=== PATIENT | female | born 1970 | race Caucasian/White ===

== ENCOUNTER 2025-02-24 11:14 | Emergency (ER) | payer MEDICARE, SELFPAY ==
[2025-02-24 11:16] VITALS: BP 126/96; PULSE 103; RESP 18; TEMP 37.1; O2SAT 98
[2025-02-24 11:17] VITALS: BMI 29.0
--- NOTE | 2025-02-24 12:36 | CT_ITS ---
EXAM: NONCONTRAST CT SCAN OF THE HEAD CLINICAL HISTORY: Pain COMPARISON: None TECHNIQUE: Serial axial series through the head were obtained without contrast. 2-D coronal and sagittal reformats were then obtained. FINDINGS: Brain: There is no acute large territorial infarct, intracranial hemorrhage, midline shift or mass effect. The sella and pineal gland regions appear unremarkable. There is no evidence of cerebellar tonsillar herniation. Ventricles: There is no acute hydrocephalus. Basilar cisterns are patent. Paranasal sinuses: Well-aerated Mastoid air cells: There is fluid density in a portion of the right mastoid air cells. Calvarium: The bony calvarium is intact. Orbits: The bilateral globes are symmetric, without retrobulbar compressive mass lesion or hemorrhage. CT/Brain/Head without Contrast IMPRESSION: There is fluid density in a portion of the right mastoid air cells, with mastoi ditis. No acute intracranial pathology. Reading Location: [facility]
[2025-02-24 13:01] LABS: Hematocrit 38.8 % (37-47); Hemoglobin 13.6 g/dL (12.0-15.0); Immature Granulocytes Count 0.020 X10^3/uL (0.0-0.0); Mean Corp Hgb Conc 35.1 g/dL (32-36); Mean Corpuscular Volume 92.2 fL (81-99); Mean Platelet Vol. 10.9 fl (6.2-12.0); NRBC Flagged by Analyzer 0 % (0-5); Platelet Count 296 K/mm3 (150-450); RBC Distribution Width CV 12.8 % (11.6-14.6); RBC Distribution Width SD 42.8 fl (35.1-43.9); Red Blood Count 4.21 M/mm3 (4.2-5.4); White Blood Count 7.2 K/mm3 (4.4-11.0)
[2025-02-24] MEDS: 0.9% Normal Saline (1000mL) 1,000 ML 999 ML IV (13:02)
[2025-02-24 13:15] VITALS: BP 106/72; PULSE 16; RESP 82
[2025-02-24 13:35] LABS: AST(SGOT) 14 U/L (<=31); Alanine Aminotransfer ALT/SGPT 11 U/L (<=34); Albumin, Serum 4.4 g/dL (3.5-5.0); Alkaline Phosphatase 79 U/L (35-104); Anion Gap 13 (5-15); BUN 5 mg/dL (4-19); BUN/Creat Ratio 7.8 RATIO (10-20); Calcium,Total 9.8 mg/dL (7.6-11.0); Carbon Dioxide 20.4 mmol/L (21.0-32.0); Chloride 106 mmol/L (98-108); Estimated Creatinine Clearance 109.60 ml/min (50-250); Globulin 2.8 g/dL (2.2-4.2); Glucose 105 mg/dL (70-99); Lipase 17 U/L (13-75); Potassium 4.1 mmol/L (3.3-5.1)
[2025-02-24 13:52] LABS: Mucous, Urine 0 SEEN /hpf (<or=2+); Red Blood Cells-Urine 0 SEEN /hpf (0-5); Squamous Epithelial Cells - UA 0 SEEN /hpf (5-10)
[2025-02-24 13:54] LABS: Color, Urine Yellow (Yellow); Glucose, Dipstick Normal (Normal); Ketone-Dipstick Negative (Negative); Leukocyte Esterase-Dipstick Negative /ul (Negative); Nitrite-Dipstick Negative (Negative); Occult Blood-Urine Negative /ul (Negative); Protein-Dipstick Negative (Negative); Specific Gravity, Urine 1.005 (1.002-1.030); Urine Bilirubin Dipstick Negative (Negative)
--- NOTE | 2025-02-24 14:16 | EX.ED.VIS.HA ---
HPI History of Present Illness Chief Complaint: Headache Informant: patient Narrative Narrative: Patient is a 54-year-old female presenting with worsening headache and bilateral ear pain. Has a history of migraine headaches. She normally takes Maxalt for this and it normally helps. She states that 2 days ago she threw up after dinner. She then developed relatively profuse vomiting and diarrhea that she maybe had food poisoning. She had hot and cold chills but denies any objective fever. The following day she developed a headache. She states it started in the front of her head and the top of her head but then she started get pressure in her ears off-and-on. Since then last night she has had worsening bilateral ear congestion and pain. She feels that there is a lot of pressure in her ears with her right worse than her left. Denies any nasal congestion. States she is having pain at the base of her skull and the back of her neck. She is taking Maxalt x 3 with no relief of her headaches which is abnormal for her and she came in for further evaluation. She states she does have associated photophobia and is seeing auras which is consistent with her migraines. No sick contacts reported but she is around children. Is still having some nausea and diarrhea but that is improving. No other complaints or concerns at this time. Denies any fever, denies any rash. Denies any head injuries or trauma. [facility] Medical History no medical history Home Medications ?Medication ?Instructions ?Recorded ?Last Taken ?Type amoxicillin 875 mg-potassium 1 tab PO Q12H #28 tabs 02/24/25 Unknown Rx clavulanate 125 mg tablet atorvastatin 40 mg tablet (Lipitor) 40 mg PO DAILY 02/24/25 Unknown History buspirone 15 mg tablet 15 mg PO BID 02/24/25 Unknown History ergocalciferol (vitamin D2) 1,250 50,000 unit PO QWEEK 02/24/25 Unknown History mcg (50,000 unit) capsule (Vitamin D2) estradiol 0.01% (0.1 mg/gram) 0.25 appful vaginal QWEEK 02/24/25 Unknown History vaginal cream fluticasone furoate 50 inhalation 02/24/25 Unknown History mcg/actuation blister powder for inhalation fluticasone propionate 50 1 spray intranasal DAILY #16 grams 02/24/25 Unknown Rx mcg/actuation nasal spray,suspension (Flonase Allergy Relief) ibuprofen 600 mg tablet 600 mg PO Q6H PRN PRN pain #20 02/24/25 Unknown Rx TABLETS meloxicam 15 mg tablet 15 mg PO DAILY 02/24/25 Unknown History omeprazole 40 mg capsule,delayed 40 mg PO DAILY 02/24/25 Unknown History release ondansetron 4 mg disintegrating 4 mg PO Q8H PRN PRN Nausea #10 tabs 02/24/25 Unknown Rx tablet ondansetron 4 mg disintegrating 4 mg PO TID 02/24/25 Unknown History tablet quetiapine 25 mg tablet 25 mg PO QHS 02/24/25 Unknown History Allergy/AdvReac Type Severity Reaction Status Date / Time morphine Allergy PT UNSURE Verified 02/24/25 11:15 OF REACTION Family History no significant family his Surgical History no surgical history Social History Smoking Status: Light Smoker (<10/day) ROS ROS ED Constitutional Constitutional ED: Reports chills and sweats; Denies fever(s) Eyes Eyes: Reports other Details: Aura and photophobia ENT ENT ED: Reports ear pain and other; Denies rhinorrhea or sore throat Cardiovascular Cardiovascular: Denies chest pain Respiratory/Chest Respiratory/Chest: Denies cough or dyspnea Gastrointestinal Gastrointestinal: Reports diarrhea, nausea and vomiting; Denies abdominal pain Musculoskeletal Musculoskeletal: Reports neck pain; Denies arthralgias or myalgias Integumentary Denies rash Neurologic Neurologic: Reports headache(s); Denies paresthesias or weakness Hematologic/Lymphatic Hematologic/Lymphatic: Denies easy bleeding or easy bruising EXAM Physical Exam Const Vital Signs: 02/24/25 11:16 02/24/25 13:15 Temperature 98.7 F Temperature Source Oral Pulse Rate 103 H 16 L Respiratory Rate 18 82 H Blood Pressure 126/96 H 106/72 Blood Pressure Mean 106 83 Pulse Ox 98 Oxygen Delivery Method Room Air Positive well nourished and well developed General Appearance ED: well developed and NAD HEENT Reports normocephalic, TM's clear and moist mucous membranes HEENT Narrative: Bilateral mastoid tenderness, right worse than left. No overlying erythema or skin changes present. atraumatic Face and Sinus: Negative for sinus tenderness Tympanic Membrane ED: Yes TM's clear Eyes PERRL and EOMs intact bilaterally Neck supple and no meningeal signs Neck Narrative: Tenderness to palpation at the occiput and at the posterior neck however she has preserved range of motion. No meningeal's. Negative Kernig sign. Resp normal respiratory effort and clear to auscultation bilaterally Cardio regular rate and regular rhythm GI non-tender and non-distended Auscultation: normoactive bowel sounds Palpation: soft Extremity normal to inspection and full ROM Neuro oriented x3, CN's II-XII intact bilaterally and no sensory deficits noted Neuro Narrative: Normal coordination, no truncal ataxia Anderson Coma Scale: document GCS findings Spontaneous Obeys Commands Oriented 15 Sensorium / Orientation: awake and alert Speech: speech normal Sensory Exam: No sensory level loss detected Motor Exam: strength 5/5 throughout; Negative for general weakness Psych Mood & Affect: anxious Skin Lesions: no lesions Rashes: no rashes MDM MDM MDM Narrative Medical decision making narrative: Patient evaluate for worsening headache and bilateral ear pain/pressure. Differential includes migraine headache, tension headache, otitis media, eustachian tube dysfunction and viral syndrome. She also reports recent vomiting diarrhea so concern for dehydration electrolyte derangement is on the differential. Patient given IV fluids, Toradol and Compazine. Because the characteristic of her headache is different than normal will obtain CT to look at the sinuses and also look for signs of any intracranial hemorrhage or space-occupying lesion. CT does show findings consistent with right mastoiditis which she is having symptoms consistent of. She is afebrile in the emergency however with normal white blood cell count. She does not have nuchal rigidity and I do not suspect meningitis and I do not think she needs an LP at this time. She will be discharged home with a prescription for Augmentin and given first with the emergency room. Given outpatient follow-up for ENT. Patient is comfortable this plan of care. Repeat evaluation she is feeling much better with her headache but does continue have some mild right ear pain. Will also start her on Flonase in case there is a component of eustachian tube dysfunction causing her pain. Lab Data Attestation: I reviewed the patient's lab results. Labs: Laboratory Results - last 24 hr 02/24/25 02/24/25 12:54 13:45 WBC 7.2 RBC 4.21 Hgb 13.6 Hct 38.8 MCV 92.2 MCH 32.3 H MCHC 35.1 RDW Std Deviation 42.8 RDW Coeff of Ariana 12.8 Plt Count 296 MPV 10.9 Immature Gran % (Auto) 0.300 Neut % (Auto) 63.0 Lymph % (Auto) 25.1 [place] % (Auto) 7.9 Eos % (Auto) 2.6 Baso % (Auto) 1.1 H Absolute Neuts (auto) 4.5 Absolute Lymphs (auto) 1.80 Nucleated RBC % 0 Sodium 139 Potassium 4.1 Chloride 106 Carbon Dioxide 20.4 L Anion Gap 13 BUN 5 Creatinine 0.69 L Estim Creat Clear Calc 109.60 Est GFR (MDRD) Non-Af 102 BUN/Creatinine Ratio 7.8 L Glucose 105 H Calcium 9.8 Total Bilirubin 0.30 AST 14 ALT 11 Alkaline Phosphatase 79 Total Protein 7.3 Albumin 4.4 Globulin 2.8 Albumin/Globulin Ratio 1.6 Lipase 17 Urine Color Yellow Urine Clarity Clear Urine pH 7.0 Ur Specific [place] 1.005 Urine Protein Negative Urine Glucose (UA) Normal Urine Ketones Negative Urine Occult Blood Negative Urine Nitrite Negative Urine Bilirubin Negative Urine Urobilinogen Normal Ur Leukocyte Esterase Negative Urine RBC 0 SEEN Urine WBC 0 SEEN Ur Squamous Epith Cells 0 SEEN Urine Bacteria 0 SEEN Urine Mucus 0 SEEN Radiography Diagnostic Testing: Clinical Impression(s) from Imaging Studies Brain CT 02/24/25 12:36 IMPRESSION: There is fluid density in a portion of the right mastoid air cells, with mastoiditis. No acute intracranial pathology. Reading Location: [facility] Discharge Plan Triage Chief Complaint: Headache ED Provider: Ashley Christian Dx/Rx/DC Orders Clinical Impression: Migraine headache, Mastoiditis of right side Prescriptions: New amoxicillin-pot clavulanate 875-125 mg tablet 1 tab PO Q12H Qty: 28 0RF ondansetron 4 mg tablet,disintegrating 4 mg PO Q8H PRN PRN (Reason: Nausea) Qty: 10 0RF ibuprofen 600 mg tablet 600 mg PO Q6H PRN PRN (Reason: pain) Qty: 20 0RF fluticasone propionate [Flonase Allergy Relief] 50 mcg/actuation spray,suspension 1 spray intranasal DAILY Qty: 16 0RF Rx Instructions: administer into each nostril No Action buspirone 15 mg tablet 15 mg PO BID estradiol 0.01 % (0.1 mg/gram) cream 0.25 appful vaginal QWEEK atorvastatin [Lipitor] 40 mg tablet 40 mg PO DAILY quetiapine 25 mg tablet 25 mg PO QHS ondansetron 4 mg tablet,disintegrating 4 mg PO TID omeprazole 40 mg capsule,delayed release(DR/EC) 40 mg PO DAILY meloxicam 15 mg tablet 15 mg PO DAILY fluticasone furoate 50 mcg/actuation blister with device inhalation ergocalciferol (vitamin D2) [Vitamin D2] 1,250 mcg (50,000 unit) capsule 50,000 unit PO QWEEK Primary Care Provider: Lenin Rebolledo Referrals: Tyler Nash MD [Med Staff - Active Staff] - Lenin Rebolledo MD [Primary Care Provider] - Activity Restrictions/Additional Instructions: Your CT did show some air-fluid levels in your right mastoid consistent with possible mastoiditis. Will place on antibiotics for this. You were also given a prescription for Flonase which will help ease the pressure in your eustachian tubes and hopefully help with the drainage in your ears. Take nausea medicine and prescribed ibuprofen as needed for pain. Please follow-up with disciplinary hearing officer and call their office this week for further evaluation ensuring that you are healing appropriately. If you have worsening symptoms, high fever or cannot tolerate medications please return to the emergency room Print Language: Chinese Disposition Disposition: Home, Self Care
[2025-02-24 14:29] VITALS: BP 122/86; BP 122/89; PULSE 79; RESP 16; TEMP 37.1; O2SAT 98
== END 2025-02-24 15:11 | disposition home or self-care (01) ==
PROVIDERS: Emergency Provider Emergency Medicine; PCP Family Medicine; Visit Provider Emergency Medicine
DX: G43.909 Migraine, unspecified, not intractable, without status migrainosus (principal); H70.91 Unspecified mastoiditis, right ear; F17.200 Nicotine dependence, unspecified, uncomplicated; Z79.899 Other long term (current) drug therapy
CPT/HCPCS: 70450; 80053; 81001; 83690; 85025; 96361; 96374; 96375; 99282; A4216